=== PATIENT | male | born 1970 | race Caucasian/White ===

== ENCOUNTER 2017-10-02 11:25 | Observation (INO) | payer OTHER ==
[2017-10-02] MEDS ORDERED: CLINDAMYCIN 900 MG/DEXTROSE 50 ML IV ONE (11:53)
[2017-10-02] MEDS ORDERED: DEXAMETHASONE 10 MG/ML VIAL IVP ONE (11:53)
[2017-10-02] MEDS ORDERED: LR 1,000 ML IV ONE (11:54)
[2017-10-02] MEDS ORDERED: LIDOCAINE 1% 2 ML INJ ID PRN (11:54)
[2017-10-02] MEDS ORDERED: LIDO/EPI 1% **for epidural** 30 ML SDV ONE (11:59)
[2017-10-02] MEDS ORDERED: BACITRACIN ZINC 14.2 GM OINTTUBE TP ONE (12:01)
[2017-10-02] MEDS ORDERED: BUPIVACAINE/EPI 0.5% 30 ML SDV ONE (12:01)
[2017-10-02] MEDS ORDERED: OXYMETAZOLINE 30 ML NASAL SPRAY ONE (12:01)
[2017-10-02] MEDS ORDERED: MIDAZOLAM 2 MG/2 ML VIAL IVP ONE (12:04)
--- NOTE | 2017-10-02 12:04 | PDANEPAE ---
ANE History of Present Illness tonsillectomy, UPPP ANE Past Medical History - Cardiovascular History Hx Hypertension: Yes Hx Arrhythmias: No Hx Chest Pain: No Hx Coronary Artery / Peripheral Vascular Disease: No Hx CHF / Valvular Disease: No Hx Palpitations: No Cardiovascular History Comment: HTN X 10 YRS. - Pulmonary History Hx COPD: No Hx Asthma/Reactive Airway Disease: No Hx Recent Upper Respiratory Infection: No Hx Oxygen in Use at Home: No Hx Sleep Apnea: Yes Sleep Apnea Screening Result - Last Documented: Negative Pulmonary History Comment: H/A'S-DUE TO NECK PAIN SECONDARY LYME DISEASE AGE 20 - Neurologic History Hx Cerebrovascular Accident: No Hx Seizures: No Hx Dementia: No - Endocrine History Hx Diabetes: No - Renal History Hx Renal Disorders: No - Liver History Hx Hepatic Disorders: No - Neurological & Psychiatric Hx Hx Neurological and Psychiatric Disorders: Yes Neurological / Psychiatric History Comment: LYME DISEASE AGE 20-C/O NECK PAIN,H/ A . N/T L ARM. - Cancer History Hx Cancer: No - Congenital Disorder History Hx Congenital Disorders: No - GI History Hx Gastrointestinal Disorders: No - Other Health History Other Health History: DEVIATED SEPTUM, CHRONIC TONSILLITIS, SNORING. SEASONAL ALLERGIES. JOINT PAIN SECONDARY TO LYME DISEASE. - Chronic Pain History Chronic Pain: Yes (NECK PAIN) - Surgical History Prior Surgeries: REMOVAL OF SHRAPNELL L HAND ANE Review of Systems Review of systems is: negative Review of Systems: - Exercise capacity METS (RN): 5 METS ANE Patient History - Allergies Allergies/Adverse Reactions: ceftriaxone sodium [From Rocephin] Allergy (Verified 09/11/17 14:14) Rash HAZELNUTS,PECANS,CASHEWS Allergy (Uncoded 09/11/17 14:14) Other-Enter Comments - Home Medications Home medications: home medication list seen and reviewed Home Medications: Aspirin EC [Aspirin EC 325 mg (*)] 650 mg PO HS PRN 09/06/17 [Last Taken 1 Week Ago ~09/25/17] Aspirin EC [Aspirin EC 81 mg (*)] 81 mg PO DAILY 09/06/17 [Last Taken 1 Week Ago ~09/25/17] Ibuprofen [Motrin (*)] 600 - 800 mg PO DAILY PRN 09/06/17 [Last Taken 1 Week Ago ~09/25/17] Losartan Potassium [Cozaar 50 mg (*)] 50 mg PO DAILY 09/06/17 [Last Taken 04:00] Verapamil ER [Calan SR/ER 240MG (*)] 240 mg PO DAILY 09/06/17 [Last Taken 08:00] - NPO status NPO Status: no food or drink >8 hours - Anes Hx Anes Hx: no prior problems - Smoking Hx Smoking Status: Never smoked - Family Anes Hx Family Anes Hx: none ANE Labs/Vital Signs - Vital Signs Vital Signs: reviewed preoperatively; see RN documention for details Height: 185.42 cm Weight: 104.326 kg ANE Physical Exam - Airway Neck exam: FROM Mallampati Score: Class 2 Mouth exam: normal dental/mouth exam - Pulmonary Pulmonary: no respiratory distress - Cardiovascular Cardiovascular: regular rate and rhythym - ASA Status ASA Status: II ANE Anesthesia Plan Anesthesia Plan: general endotracheal anesthesia
--- NOTE | 2017-10-02 12:28 | PDHPUP ---
History & Physical Update H&P update statement: This history and physical update is based on an assessment of the patient which was completed after admission or registration (within 24 hours), but prior to the surgery/procedure. H&P update: no change in patient's condition since H&P completed
[2017-10-02] MEDS ORDERED: PROPOFOL 200 MG/20 ML VIAL ONE (12:35)
[2017-10-02] MEDS ORDERED: ROCURONIUM 50 MG/5 ML VIAL ONE (12:35)
[2017-10-02] MEDS ORDERED: ONDANSETRON 4 MG/2 ML VIAL ONE (12:35)
[2017-10-02] MEDS ORDERED: LIDOCAINE 2% 100 MG/5 ML SYR ONE (12:35)
[2017-10-02] MEDS ORDERED: DEXAMETHASONE 4 MG/ML VIAL ONE (12:35)
[2017-10-02] MEDS ORDERED: fentaNYL 250 MCG/5 ML INJ ONE (12:35)
[2017-10-02] MEDS ORDERED: oxyCODONE IR 5 MG TAB PO PRN (13:19)
[2017-10-02] MEDS ORDERED: ONDANSETRON 4 MG/2 ML VIAL IVP PRN ×2 (13:19→15:13)
[2017-10-02] MEDS ORDERED: NALOXONE HCL 0.4 MG/ML INJ IVP PRN (13:19)
[2017-10-02] MEDS ORDERED: PROMETHAZINE HCL 25 MG/ML INJ IVP PRN (13:19)
[2017-10-02] MEDS ORDERED: HYDROCODONE/APAP 5/325 TAB PO PRN (13:19)
[2017-10-02] MEDS ORDERED: DEXAMETHASONE 4 MG/ML VIAL IVP PRN (13:19)
[2017-10-02] MEDS ORDERED: MEPERIDINE 25 MG/0.5 ML AMP IVP PRN (13:19)
[2017-10-02] MEDS ORDERED: ACETAMINOPHEN 500 MG TAB PO PRN (13:19)
--- NOTE | 2017-10-02 13:19 | POSTANESTH ---
Post Anesthetic Evaluation Cardiovascular Status: Normal, Stable, Similar to Pre-Op Cond Respiratory Status: Similar to Pre-op Cond. Level of Consciousness/Mental Status: Can Participate in Eval Pain Control: Adequate, Prn Tx Ordered Nausea/Vomiting Control: Adequate, Prn Tx Ordered Complications Possibly Related to Anesthesia: None Noted
[2017-10-02] MEDS ORDERED: fentaNYL 100 MCG/2 ML INJ ONE (15:32)
--- NOTE | 2017-10-02 15:32 | POSTOPPROG ---
Post Op Note Date of Operation: 10/02/17 Surgeon: Emerson Valencia Anesthesiologist: bowen Anesthesia: GET(General Endotracheal) Pre-op Diagnosis: septal deviation, ITH, tonsil hyperplasia, right nasal polyp, snoring Post-op Diagnosis: same Indication: nasal obstruction, snoring, tonsil hypertrophy Procedure: septoplasty, SMRIT, tonsillectomy, uvulectomy, nasal endoscopy polypectomy Findings: dev septum, lg turbs and tonsils Inf/Abcess present in the surg proc area at time of surgery?: No Depth: Deep Incisional (Fascial) EBL: 50-100 Complications: none Specimen(s): tonsils and uvula
[2017-10-02] MEDS: fentaNYL 100 MCG/2 ML INJ IVP PRN ×2 (15:33→15:48)
[2017-10-02] MEDS ORDERED: HYDROmorphONE/DILAUDID 2 MG/ML INJ ONE (15:37)
[2017-10-02] MEDS: HYDROmorphONE/DILAUDID 2 MG/ML INJ IVP PRN ×3 (15:38→16:55)
[2017-10-02] MEDS ORDERED: LABETALOL HCL 5 MG/ML 20 ML MDV ONE (15:45)
[2017-10-02] MEDS: LABETALOL HCL 5 MG/ML 20 ML MDV IVP PRN ×2 (15:46→16:27)
--- NOTE | 2017-10-02 16:26 | GOP ---
[f rep st] OPERATIVE REPORT DATE OF OPERATION: 10/02/2017 SURGEON: Emerson Valencia MD ANESTHESIA: General. PREOPERATIVE DIAGNOSIS: 1. Tonsil hyperplasia. 2. Snoring. 3. Septal deviation. 4. Inferior turbinate hyperplasia. 5. Right nasal polyp. POSTOPERATIVE DIAGNOSIS: 1. Tonsil hyperplasia. 2. Snoring. 3. Septal deviation. 4. Inferior turbinate hyperplasia. 5. Right nasal polyp. PROCEDURE PERFORMED: 1. Nasal septoplasty. 2. Bilateral submucous resection of inferior turbinates. 3. Nasal endoscopy with removal of right-sided nasal polyp. 4. Tonsillectomy. 5. Uvulectomy. FINDINGS: Bilateral septal deviation, significant excoriation of the right anterior septum, a polyp growing out the right middle turbinate, large inferior turbinates, large tonsils. SPECIMENS: Tonsils. ESTIMATED BLOOD LOSS: 70 mL. INDICATIONS: The patient is a 47-year-old man with a lifelong history of nasal obstruction difficulties. He has had increasing troubles over the last 2 years and some symptoms of apnea. He has tried and failed medical therapy, and presents for surgical intervention in hopes of improving upper airway. DESCRIPTION OF PROCEDURE: The patient was taken to the OR, positively identified, placed on monitors, and general anesthesia was induced. The table was then turned 90 degrees. His nose was topically decongested with Afrin- soaked pledgets. He was prepped and draped in normal fashion. The equipment was set up. The right nasal passage was examined with a zero-degree endoscope. The polyp was examined and infiltrated with 0.25 mL of 1% lidocaine with 1:200 ,000 epinephrine. The polyp was then removed where it was broadly based off the right middle turbinate, improving the nasal airway. At this point, attention was turned to the septoplasty. The septum was infiltrated with 7 mL of 1% lidocaine with 1:200,000 epinephrine. A right hemitransfixion incision was made. Dissection was carried along the subperichondrial and subperiosteal planes. The bony cartilaginous junction was then bluntly divided. The dissection was carried along the left side of the perpendicular plate of the ethmoid and vomer. The septal spur on the right side was removed with double-action thru-cutting rongeurs as was the thickened and deviated portion of the septum on the nose. The posterior aspect of the quadrangular cartilage was excised, leaving an undisturbed dorsal and caudal strut. This piece was then removed from the nose , flattened, thinned with the scalpel, and placed back between the mucosal flaps. I then dissected around the anterior edge of the caudal septum to free it up from being closer to the midline as it was deviated into the right side of the nose anteriorly. It was then secured with a 4-0 chromic suture. The incisions were then closed with interrupted 4-0 chromic and 5-0 plain gut mattress stitch. The inferior turbinates were infiltrated with 3 cc of local anesthetic on either side. A stab incision was made anteriorly. Soft tissues were elevated with Nicholson elevator. Submucosal resection was performed with a shaver, and the turbinates were outfractured. At this point, 2 Ortiz splints were placed on either side of the septum, secured with a transverse stitch followed by a single Afrin-soaked pledget on either side of the nose, and the strings were tied and taped to the cheek. Attention was turned to the tonsils. A Tony mouth gag was used to visualize the oropharynx, and the peritonsillar tissues were infiltrated with 3 cc total of 0.5% Marcaine with [id number] epinephrine. The tonsil was then sequentially excised with the Coblation wand and the monopolar cautery as needed. On both sides, a [id number] 3-0 chromic stitch was placed over a mid tonsillar fossa oozing vessel and on the right side of the inferior pole as well. The gag was released for several minutes and reopened. There were no signs of any bleeding. The uvula was then excised, and the mucosa on the posterior aspect of the uvula was wrapped anteriorly and sewn in with two 5-0 chromic stitches. The gag was released for several minutes and reopened. There were no signs of any bleeding, and further 1 cc of the Marcaine was infiltrated into either tonsillar fossa, again with care being taken not to inject it intravascularly. At this point, the case was terminated. The gag was released and removed. The patient was turned back over to Anesthesia. The Ancef was discontinued. He was extubated and taken to the postop care unit in good condition having tolerated the procedure well. COMPLICATIONS: None. /[id number]/MODL MTDD
[2017-10-02] MEDS: D5W LR 1,000 ML IV SCH (17:28)
[2017-10-02] MEDS: HYDROCOD/APAP 7.5/325 IN 15ML UDCUP PO PRN ×2 (17:55→21:56)
[2017-10-02] MEDS: DEXAMETHASONE 4 MG/ML VIAL IVP SCH (21:01)
[2017-10-02] MEDS: OXYMETAZOLINE 30 ML NASAL SPRAY EACHNARE SCH (21:57)
[2017-10-03] MEDS: HYDROCOD/APAP 7.5/325 IN 15ML UDCUP PO PRN ×3 (01:39→11:10)
[2017-10-03] MEDS: DEXAMETHASONE 4 MG/ML VIAL IVP SCH (05:46)
[2017-10-03] MEDS: D5W LR 1,000 ML IV SCH (05:50)
[2017-10-03 07:21] VITALS: BP 128/70
[2017-10-03] MEDS: OXYMETAZOLINE 30 ML NASAL SPRAY EACHNARE SCH (08:24)
--- NOTE | 2017-10-03 09:05 | SOAPPROG ---
SOAP Progress Note Assessment/Plan: Assessment/Plan: 47 year old male POD 1 s/p septoplasty, submucosal reduction of the inferior turbinates, right nasal polypectomy, tonsillectomy and uvulectomy by Dr. Valencia. He is doing well. Pain controlled. Breathing well. Denies bleeding. Rx for amoxicillin and hycet. Reviewed post op care. Okay for discharge when stable. Follow up 10/09/17 in office. 10/03/17 09:02 Objective: Vital Signs Temp Pulse Resp BP Pulse Ox 36.3 C 67 18 128/70 H 90 L 10/03/17 07:20 10/03/17 07:20 10/03/17 07:20 10/03/17 07:20 10/03/17 07:20 10/02/17 10/03/17 10/04/17 05:59 05:59 05:59 Intake Total 1920 Balance 1920 - Pending Discharge Pending Discharge Within 24 Hours: Yes Pending Discharge Date: 10/04/17 Pending Discharge Time: 11:00 ICD10 Worksheet Patient Problems: Problems Problem Status Onset Nasal polyp Acute Nasal septal deviation Acute S/P tonsillectomy Acute Sleep apnea Acute
--- NOTE | 2017-10-03 09:36 | ASMTLACE ---
LACE Length of stay for Answers: Less than 1 day current admission Acuity / Level of Answers: No Care: Did the patient have an inpatient admission? Comorbidities - select Answers: Other Notes: tonsillitis all that apply # of Emergency department Answers: 0 visits in the last 6 months Score: 1 Date Signed: 10/03/2017 09:35 AM Electronically Signed By:Marjan Tyson RN
--- NOTE | 2017-10-03 09:38 | ASMTCMCOM ---
CM Note CM Note Notes: Chart reviewed for discharge planning purposes. 47 year old male admitted for repair for deviated septum and tonsillectomy No needs identified He has been medically cleared for dc to home. CM available should needs arise. Plan: Home independently Date Signed: 10/03/2017 09:38 AM Electronically Signed By:Marjan Tyson RN
== END 2017-10-03 11:39 | disposition home or self-care (01) ==
LOC: F3N 11:25 → F3E 12:27
PROVIDERS: ADMIT Otolaryngology; ATTEND Otolaryngology
PROC: 0CTPXZZ Resection of Tonsils, External Approach (ICD-10-PCS; principal; 2017-10-02 12:30)
PROC: 0CTN0ZZ Resection of Uvula, Open Approach (ICD-10-PCS; principal; 2017-10-02 12:30)
PROC: 095L7ZZ Destruction of Nasal Turbinate, Via Natural or Artificial Opening (ICD-10-PCS; principal; 2017-10-02 12:30)
PROC: 09SM0ZZ Reposition Nasal Septum, Open Approach (ICD-10-PCS; principal; 2017-10-02 12:30)
PROC: 09BKXZZ Excision of Nasal Mucosa and Soft Tissue, External Approach (ICD-10-PCS; principal; 2017-10-02 12:30)
DX: J34.2 Deviated nasal septum (principal); J34.3 Hypertrophy of nasal turbinates; J33.9 Nasal polyp, unspecified; J35.01 Chronic tonsillitis; J35.1 Hypertrophy of tonsils; R06.83 Snoring; I10 Essential (primary) hypertension; A69.20 Lyme disease, unspecified
CPT/HCPCS: 30110; 30140; 30520; 42140; 42826; G0378; J1100; J1170; J2001; J2250; J2270; J2405; J2704; J3010